=== PATIENT | female | born 1980 | race Caucasian/White ===

== ENCOUNTER 2022-05-11 23:20 | Emergency (ER) | payer OTHER ==
[2022-05-12] MEDS ORDERED: Acetaminophen 325 MG Tab PO ONE (01:11)
== END 2022-05-12 01:26 | disposition home or self-care (01) ==
LOC: MW.ED 23:20
DX: Z02.89 Encounter for other administrative examinations (principal)
CPT/HCPCS: 36415; 72170; 72170-26; 74018; 74018-26; 84703; 99283